=== PATIENT | female | born 1970 | race Caucasian/White ===

== ENCOUNTER 2016-10-30 22:41 | Emergency (ER) | payer SELFPAY ==
[~2016-10-30] VITALS: Wt 54.1 kg
--- NOTE | 2016-10-31 00:57 | ERD ---
ER Documentation Chief Complaint Date/Time DATE: 10/31/16 TIME: 00:54 Chief Complaint bib ems cc slip and fall at [employer], c/o back pain HPI Patient is a 46-year-old female who presents to the emergency department with lower back pain status post a slip and fall injury while at a store today. Patient was brought in by paramedics. Patient states that she slipped on some shampoo on the floor and had fall injury. Patient landed on her right buttocks. Patient states that she is having lower back pain and right shoulder pain. She is able to ambulate however states it is painful. Patient denies any saddle anesthesia, urinary incontinence, stool incontinence, fever, chills, nausea, vomiting, chest pain, shortness of breath or loss of consciousness. Patient does recall all events of the injury and denies any head trauma. ROS All systems reviewed and are negative except as per history of present illness. Medications Home Meds Active Scripts Tramadol HCl (Tramadol HCl) 50 Mg Tablet, 50 MG PO Q6 Y for PAIN, #12 TAB Prov:DONY CALDWELL PA-C 10/31/16 Ibuprofen* (Motrin*) 600 Mg Tab, 600 MG PO Q6, #30 TAB Prov:DONY CALDWELL PA-C 10/31/16 Allergies Allergies: Coded Allergies: acetaminophen (Unverified Adverse Reaction, Mild, per patient states swelling of lips and underneath the eyes, 10/31/16) PMhx/Soc History of Surgery: No Anesthesia Reaction: No Hx Neurological Disorder: No Hx Respiratory Disorders: No Hx Cardiac Disorders: No Hx Psychiatric Problems: No Hx Miscellaneous Medical Probl: No (DENIES MED AND SURG HX.) Hx Alcohol Use: No Hx Substance Use: No Hx Tobacco Use: No Smoking Status: Never smoker Physical Exam Vitals Vital Signs Date Time Temp Pulse Resp B/P Pulse Ox O2 Delivery O2 Flow Rate FiO2 10/31/16 03:29 98.2 68 115/71 99 Room Air 10/30/16 23:03 98.0 78 20 158/93 100 Physical Exam GENERAL: Well-developed, well-nourished female. Appears in no acute distress. HEAD: Normocephalic, atraumatic. No deformities or ecchymosis. EYE: Pupils equal, round, and reactive to light. EOMs intact. No conjunctival erythema. No eye discharge. ENT: External ear without any masses or tenderness. Auditory canals clear bilaterally. TM visualized bilaterally, non-erythematous, non-bulging. Nasal mucosa pink with no discharge. Oropharynx is pink without any tonsillar erythema or exudates. No uvula deviation. No kissing tonsils. NECK: Supple. No meningismus. Normal ROM of the neck. No cervical midline tenderness. LUNG: Clear to auscultation bilaterally. No rhonchi, wheezing, rales or coarse breath sounds. HEART: Regular rate and rhythm. No murmurs, rubs or gallops. BACK: No midline tenderness. Tender to palpation of bilateral lumbar paraspinous muscles. EXTREMITIES: Equal pulses bilaterally. No peripheral clubbing, cyanosis or edema. No unilateral leg swelling. NEUROLOGIC: Alert and oriented to person, place and time. Moving all four extremities. 5/5 strength in all extremities. Normal speech. Steady gait. SKIN: Normal color. Warm and dry. No rashes or lesions. RIGHT ARM: No obvious deformity, erythema, ecchymosis or swelling. Skin intact. No bursal swelling. Decreased ROM of the shoulder secondary to pain. Normal ROM of the elbow and wrist. Able to supinate and pronate without difficulty. Tender to palpation of posterior shoulder. Non-tender to palpation of the humerus, elbow, forearm, wrist and hand. Sensation intact to light touch. Neurovascularly intact. (Able to give thumbs up, make an ok sign, cross digits 2 and 3, thumb to pinky opposition. 2+ RP.) No snuffbox tenderness. Compartments soft. Results 24 hrs Current Medications Medications (Trade) Dose Ordered Sig/Abhi Route PRN Reason Start Time Stop Time Status Last Admin Dose Admin Acetaminophen/ Hydrocodone Bitart (Guymon (5/325)) 1 tab ONCE ONCE PO 10/31/16 01:00 10/31/16 01:08 DC Ibuprofen (Motrin) 600 mg ONCE ONCE PO 10/31/16 01:30 10/31/16 01:31 DC 10/31/16 01:11 Procedures/MDM ED COURSE: The patient was stable throughout ED course. I kept the patient and/or family informed of laboratory and diagnostic imaging results throughout the ED course. DIAGNOSTIC IMAGING: Read by radiologist. Patient: LILLY MCDONALD : 1970 Age: 46 Sex: F MR #: [id number] DOS: 10/31/16 0050 Ordering MD: DONY CALDWELL PA-C Location: [facility] Room/Bed: PROCEDURE: X-ray lumbar spine CLINICAL INDICATION: Fall with lumbar spine pain TECHNIQUE: 3 views lumbar spine COMPARISON: None FINDINGS: No acute fracture dislocation. Mild degenerative changes with small marginal and superior anterior endplate osteophyte at L4. Soft tissues unremarkable. IMPRESSION: No acute fracture. RPTAT: [facility] Physician Kelly Date Time Electronically viewed and signed by Physician Kelly on 10/31/2016 03:00 RS/ CC: DONY CALDWELL PA-C DIAGNOSTIC IMAGING REPORT Patient: LILLY MCDONALD : 1970 Age: 46 Sex: F MR #: [id number] DOS: 10/31/16 0050 Ordering MD: DONY CALDWELL PA-C Location: [facility] Room/Bed: PROCEDURE: XR right shoulder. CLINICAL INDICATION: Right shoulder pain status post fall. TECHNIQUE: 2 views of the right shoulder were performed. COMPARISON: None. FINDINGS: There is normal osseous mineralization and alignment. No acute fracture or osseous lesion is identified. There are normal joints without evidence of arthritis or dislocation. The soft tissues are unremarkable. IMPRESSION: Unremarkable right shoulder. RPTAT: [facility] Physician Kelly Date Time Electronically viewed and signed by Physician Kelly on 10/31/2016 03:01 RS/ CC: DONY CALDWELL PA-C MEDICATIONS GIVEN: Ibuprofen. Guymon order was cancelled given that patient stated that she had a tylenol allergy. Patient tolerated medication well with no adverse reactions. Patient reported improvement in pain. MEDICAL DECISION MAKING: This is a 46-year-old female who presents with right shoulder pain and lower back pain status post slip and fall injury while at a store today.. Vital signs were reviewed. Patient was afebrile. Patient denied any saddle anesthesia, urinary incontinence, bowel incontinence. X-ray imaging of the right shoulder was unremarkable. X-ray imaging of the lumbar spine was unremarkable. Given these findings, the patient's presentation is most consistent with shoulder and lumbar strain. I have a much lower clinical concern for cauda equine syndrome, spinal fractures, epidural abscess, spinal metastases, osteomyelitis, aortic dissection, ruptured or leaking AA, DJD, sciatica, pyelonephritis, nephrolithiasis, scapular fracture, clavicle fracture, shoulder dislocation, brachial plexus injury, AC joint separation. Unable to rule out any ligament or tendon injuries at this time, however low suspicion. PRESCRIPTIONS: Ibuprofen Tramadol DISCHARGE: At this time, patient is stable for discharge and outpatient management. RICE therapy and ROM exercises were advised to avoid stiffness. I have instructed the patient to follow-up with his/her primary care physician in 1-2 days. I have discussed with the patient the possibility of needing to see an student specialist for further workup and imaging if the pain persists. I have instructed the patient to promptly return to the ER for any new or worsening symptoms including increased pain, swelling, warmth, urinary incontinence, stool incontinence, weakness or numbness. The patient and/or family expressed understanding of and agreement with this plan. All questions were answered. Home care instructions were provided. Departure Diagnosis: Primary Impression: Back pain Back pain location: back pain in unspecified location Chronicity: acute Back pain laterality: unspecified Qualified Code: M54.9 - Acute back pain, unspecified back location, unspecified back pain laterality Additional Impressions: Shoulder pain Laterality: right Chronicity: acute Qualified Code: M25.511 - Acute pain of right shoulder Fall with injury Encounter type: initial encounter Qualified Code: W19.XXXA - Fall with injury, initial encounter Condition: Stable Patient Instructions: Back Pain (Acute Or Chronic), Shoulder Pain (Uncertain Cause) Referrals: COMM[facility]ITY [facility] YOU HAVE RECEIVED A MEDICAL SCREENING EXAM AND THE RESULTS INDICATE THAT YOU DO NOT HAVE A CONDITION THAT REQUIRES URGENT TREATMENT IN THE EMERGENCY DEPARTMENT. FURTHER EVALUATION AND TREATMENT OF YOUR CONDITION CAN WAIT UNTIL YOU ARE SEEN IN YOUR DOCTORS OFFICE WITHIN THE NEXT 1-2 DAYS. IT IS YOUR RESPONSIBILITY TO MAKE AN APPOINTMENT FOR FOLOW-UP CARE. IF YOU HAVE A PRIMARY DOCTOR --you should call your primary doctor and schedule an appointment IF YOU DO NOT HAVE A PRIMARY DOCTOR YOU CAN CALL OUR PHYSICIAN REFERRAL HOTLINE AT IF YOU CAN NOT AFFORD TO SEE A PHYSICIAN YOU CAN CHOSE FROM THE FOLLOWING [facility] [address] [facility] [address] [facility] [address] [facility] [address] [facility] [address] [facility]. [facility] [address] [facility] YOU HAVE RECEIVED A MEDICAL SCREENING EXAM AND THE RESULTS INDICATE THAT YOU DO NOT HAVE A CONDITION THAT REQUIRES URGENT TREATMENT IN THE EMERGENCY DEPARTMENT. FURTHER EVALUATION AND TREATMENT OF YOUR CONDITION CAN WAIT UNTIL YOU ARE SEEN IN YOUR DOCTORS OFFICE WITHIN THE NEXT 1-2 DAYS. IT IS YOUR RESPONSIBILITY TO MAKE AN APPOINTMENT FOR FOLOW-UP CARE. IF YOU HAVE A PRIMARY DOCTOR --you should call your primary doctor and schedule and appointment IF YOU DO NOT HAVE A PRIMARY DOCTOR YOU CAN CALL OUR PHYSICIAN REFERRAL HOTLINE AT . IF YOU CAN NOT AFFORD TO SEE A PHYSICIAN YOU CAN CHOSE FROM THE FOLLOWING [facility]: [facility] [address] [place] [address] [facility] [address] [place] [address] [facility] [address] [place] [address] Additional Instructions: Call your primary care doctor TOMORROW for an appointment during the next 1-2 days.See the doctor sooner or return here if your condition worsens before your appointment time. DONY CALDWELL PA-C Oct 31, 2016 00:57
[2016-10-31] MEDS: HYDROCODONE/APAP (5/325) TAB PO ONE ×2 (01:03→01:04)
[2016-10-31] MEDS ORDERED: ACET500T98 (01:04)
[2016-10-31] MEDS ORDERED: IBUP800T25 (01:04)
[2016-10-31] MEDS ORDERED: IBUPROFEN 600 MG TAB PO ONE (01:30)
--- NOTE | 2016-10-31 03:00 | RADRPT ---
PROCEDURE: X-ray lumbar spine CLINICAL INDICATION: Fall with lumbar spine pain TECHNIQUE: 3 views lumbar spine COMPARISON: None FINDINGS: No acute fracture dislocation. Mild degenerative changes with small marginal and superior anterior endplate osteophyte at L4. Soft tissues unremarkable. IMPRESSION: No acute fracture. RPTAT: [facility] Physician Kelly Date Time Electronically viewed and signed by Sunil Friedman Physician on 10/31/2016 03:00 RS/
--- NOTE | 2016-10-31 03:01 | RADRPT ---
PROCEDURE: XR right shoulder. CLINICAL INDICATION: Right shoulder pain status post fall. TECHNIQUE: 2 views of the right shoulder were performed. COMPARISON: None. FINDINGS: There is normal osseous mineralization and alignment. No acute fracture or osseous lesion is identified. There are normal joints without evidence of arthritis or dislocation. The soft tissues are unremarkable. IMPRESSION: Unremarkable right shoulder. RPTAT: [facility] Physician Kelly Date Time Electronically viewed and signed by Physician Kelly on 10/31/2016 03:01 JERMAINE/
[2016-10-31] MEDS ORDERED: IBUP-1542 PO (03:20)
[2016-10-31] MEDS ORDERED: TRAM50TA2 PO (03:21)
[2016-10-31 03:29] VITALS: BP 115/71; PULSE 68; TEMP 98.2
== END 2016-10-31 03:36 | disposition home or self-care (01) ==
LOC: FTE 22:41
DX: S39.92XA Unspecified injury of lower back, initial encounter (principal); S49.91XA Unspecified injury of right shoulder and upper arm, initial encounter; W01.0XXA Fall on same level from slipping, tripping and stumbling without subsequent striking against object, initial encounter; Y92.512 Supermarket, store or market as the place of occurrence of the external cause
CPT/HCPCS: 72100